=== PATIENT | female | born 1955 | race Caucasian/White ===

== ENCOUNTER 2016-08-05 12:54 | Day surgery (SDC) | payer MEDICARE, BC ==
[~2016-08-05] VITALS: Ht 162.7 cm; Wt 136.3 kg
[2016-08-05] VITALS (8 sets, daily range): BP systolic 91–140; BP diastolic 53–85; PULSE 70–89; TEMP 97.3–97.8
[~2016-08-05 12:54] MED LIST: ADVAIR 250/28 DISKU1 IH; ALEVE 220MG220 MG PO; ASPIRIN 81M81 MG/TA2 PO; B-12 500 MCG PO; CALCIUM PO; CELEXA40 MG PO; CLARITIN 1010 MG/TAB PO; CYMBALTA30 MG PO; DESYREL 50MG50 MG PO; EPA1000 MG PO; FERROUS SULFAT325 M2 PO; FLAX SEED OIL1000 MG PO; FLORAJEN BIFIDO1 CAP PO; FUROSEMIDE40 MG PO; GLUCOSAMINE & C1 CA1 PO; HYZAAR 50-12.1 UDTAB PO; IRON325 MG PO; KLONOPIN 1MG1 MG PO; KLONOPIN WAFERS1 MG PO; LASIX 80MG TABL80 MG PO; M2 ZINC 5050 MG PO; MASON NATURAL1200 MG PO; METFORMIN500 MG PO; MICARDIS HCT 251 TAB PO; MUCINEX DM 30 M1 TE1 PO; NAPROSYN500 MG PO; NATURAL E400 IU PO; NATURAL FLAX1000 MG PO; NEXIUM 40MG40 MG PO; OXYCODONE10 MG PO; PHARMASSURE MA500 MG PO; PHARMASSURE ZIN50 MG PO; PRAVACHOL 20MG20 MG PO; PROAIR HFA0.09 MG/AC IH; PROVENTIL0.09 MG/A1 IH; PROVIGIL200 MG PO; REFRESH 1 ML1 ML OP; REFRESH DRY EYE15 ML OP; REFRESH OPTIVE10 M2 OP; RT ADVAIR 228 DISKUS IH; SAVELLA50 MG PO; SINGULAIR 110 MG/TAB PO; SINGULAIR10 MG PO; SYNTHROID0.1 MG PO; SYNTHROID0.1 MG/TAB PO; TYLENOL 325MG325 MG PO; TYLENOL ARTHRI650 M1 PO; ULTRAM 50MG TAB50 MG PO; VITAMIN B COMPL1 TA1 PO; VITAMIN C500 MG PO; VITAMIN D31000 I1 PO; VITAMIN E 400 U4001 PO
[2016-08-05 13:59] LABS: HEMOGLOBIN 14.2 g/dl (12.5-16.0); MEAN CELL VOLUME 90 fl (80.0-100.0); MEAN CORPUSCULAR HEMOGLOBIN 31 pg (27.0-31.0); MEAN CORPUSCULAR HGB CONC 35 g/dl (33.0-37.0); MEAN PLATELET VOLUME 8.7 fl (7.4-10.4); PLATELET COUNT 256 K/mm3 (130-400); RED BLOOD COUNT 4.55 M/mm3 (4.10-5.30); REDCELL DISTRIBUTION WIDTH-CV 12.5 % (11.5-14.5); WHITE BLOOD COUNT 5.2 K/mm3 (4.8-10.8)
[2016-08-05 14:07] LABS: INR 1.1 (0.8-3.0); PROTHROMBIN TIME 12.4 SECONDS (9.7-12.8)
[2016-08-05 14:10] LABS: CALCIUM 9.7 mg/dL (8.4-10.2); CREATININE, serum 0.82 mg/dL (0.52-1.25); POTASSIUM 3.7 mmol/L (3.4-5.0)
[2016-08-05] MEDS ORDERED: OSCAL 500 TAB500 MG PO (14:20)
[2016-08-05] MEDS ORDERED: VITAMIN D1000 IU PO (14:21)
[2016-08-05] MEDS ORDERED: IRON325 MG PO (14:22)
[2016-08-05] MEDS ORDERED: DESYREL 100MG100 MG PO (14:34)
== END 2016-08-05 17:45 | disposition home or self-care (01) ==
LOC: COL.CAR 12:54
PROVIDERS: Internal Medicine Interventional Cardiology
DX: I25.10 Atherosclerotic heart disease of native coronary artery without angina pectoris (principal); E78.5 Hyperlipidemia, unspecified; E66.01 Morbid (severe) obesity due to excess calories; E11.9 Type 2 diabetes mellitus without complications; I10 Essential (primary) hypertension; E03.9 Hypothyroidism, unspecified; G47.33 Obstructive sleep apnea (adult) (pediatric); Z96.653 Presence of artificial knee joint, bilateral; Z87.891 Personal history of nicotine dependence; K21.9 Gastro-esophageal reflux disease without esophagitis; Z95.1 Presence of aortocoronary bypass graft
CPT/HCPCS: C1769; C1887; C1894; J2250; J3010; Q9967

== ENCOUNTER → 2017-02-16 | Outpatient (CLI) | payer MEDICARE, BC ==
[~2017-02-16] VITALS: Ht 162.6 cm; Wt 144.5 kg
[~2017-02-16] MED LIST changes: +COLACE 100100 MG/CAP PO; +DESYREL 100MG100 MG PO; +MASON NATURAL325 MG PO; +NORCO 325 MG-101 TAB PO; +TUMS ULTRA ST1000 MG PO; +TYLENOL 8 HR PO; +VITAMIN D1000 IU PO; +ZYRTEC 10MG10 MG PO
[2017-02-16 09:35] VITALS: BP 128/70; PULSE 84
== END ==
LOC: LIGHT 09:18
DX: M15.9 Polyosteoarthritis, unspecified (principal); M54.5 Low back pain; F50.81 Binge eating disorder; F33.9 Major depressive disorder, recurrent, unspecified; Z68.43 Body mass index [BMI] 50.0-59.9, adult; Z71.3 Dietary counseling and surveillance

== ENCOUNTER → 2017-02-22 | Outpatient (CLI) | payer MEDICARE, BC ==
[~2017-02-22] VITALS: Ht 162.6 cm; Wt 142.9 kg
== END ==
LOC: LIGHT 09:26
DX: Z01.89 Encounter for other specified special examinations (principal)

== ENCOUNTER → 2017-03-15 | Outpatient (CLI) | payer MEDICARE, BC ==
[~2017-03-15] VITALS: Ht 162.6 cm; Wt 143.1 kg
[2017-03-15 16:39] VITALS: BP 110/60; PULSE 60
== END ==
LOC: LIGHT 03-08 09:32
DX: M15.9 Polyosteoarthritis, unspecified (principal); M54.5 Low back pain; F50.81 Binge eating disorder; F33.9 Major depressive disorder, recurrent, unspecified; Z68.43 Body mass index [BMI] 50.0-59.9, adult; Z71.3 Dietary counseling and surveillance

== ENCOUNTER → 2017-04-12 | Outpatient (CLI) | payer MEDICARE, BC ==
[~2017-04-12] VITALS: Ht 162.6 cm; Wt 141.5 kg
[~2017-04-12] MED LIST changes: +ADIPEX-P37.5 MG PO
[2017-04-12 16:01] VITALS: BP 132/80; PULSE 82
== END ==
LOC: LIGHT 15:44
DX: M15.9 Polyosteoarthritis, unspecified (principal); M54.5 Low back pain; F50.81 Binge eating disorder; F33.9 Major depressive disorder, recurrent, unspecified; Z68.43 Body mass index [BMI] 50.0-59.9, adult; Z71.3 Dietary counseling and surveillance
CPT/HCPCS: G0463

== ENCOUNTER → 2017-05-17 | Outpatient (CLI) | payer MEDICARE, BC ==
[~2017-05-17] VITALS: Ht 162.6 cm; Wt 138.8 kg
[~2017-05-17] MED LIST changes: +GLUCOPHAGE500 MG/TAB PO
[2017-05-17 16:31] VITALS: BP 134/84; PULSE 80
== END ==
LOC: LIGHT 09:19
DX: M15.9 Polyosteoarthritis, unspecified (principal); M54.5 Low back pain; F50.81 Binge eating disorder; F33.9 Major depressive disorder, recurrent, unspecified; Z68.43 Body mass index [BMI] 50.0-59.9, adult; Z71.3 Dietary counseling and surveillance
CPT/HCPCS: G0463

== ENCOUNTER → 2017-06-14 | Outpatient (CLI) | payer MEDICARE, BC ==
[~2017-06-14] VITALS: Ht 162.6 cm; Wt 139.0 kg
[2017-06-14 15:15] VITALS: BP 138/88; PULSE 72
== END ==
LOC: LIGHT 10:01
DX: M15.9 Polyosteoarthritis, unspecified (principal); M54.5 Low back pain; F50.81 Binge eating disorder; F33.9 Major depressive disorder, recurrent, unspecified; Z68.43 Body mass index [BMI] 50.0-59.9, adult; Z71.3 Dietary counseling and surveillance
CPT/HCPCS: G0463

== ENCOUNTER → 2017-07-12 | Outpatient (CLI) | payer MEDICARE, BC ==
[~2017-07-12] VITALS: Ht 162.6 cm; Wt 137.9 kg
[~2017-07-12] MED LIST changes: +TOPAMAX50 MG PO
[2017-07-12 14:33] VITALS: BP 138/70; PULSE 72
== END ==
LOC: LIGHT 14:17
DX: M15.9 Polyosteoarthritis, unspecified (principal); M54.5 Low back pain; F50.81 Binge eating disorder; F33.9 Major depressive disorder, recurrent, unspecified; Z68.43 Body mass index [BMI] 50.0-59.9, adult; Z71.3 Dietary counseling and surveillance
CPT/HCPCS: G0463

== ENCOUNTER → 2017-08-09 | Outpatient (CLI) | payer MEDICARE, BC ==
[~2017-08-09] VITALS: Ht 162.6 cm; Wt 134.5 kg
[2017-08-09 12:47] VITALS: BP 110/74; PULSE 84
== END ==
LOC: LIGHT 09:33
DX: M15.9 Polyosteoarthritis, unspecified (principal); M54.5 Low back pain; F50.81 Binge eating disorder; F33.9 Major depressive disorder, recurrent, unspecified; Z68.43 Body mass index [BMI] 50.0-59.9, adult; Z71.3 Dietary counseling and surveillance
CPT/HCPCS: G0463

== ENCOUNTER → 2017-09-06 | Outpatient (CLI) | payer MEDICARE, BC ==
[~2017-09-06] VITALS: Ht 162.6 cm; Wt 132.0 kg
[2017-09-06 15:57] VITALS: BP 100/60; PULSE 60
== END ==
LOC: LIGHT 15:53
DX: M15.9 Polyosteoarthritis, unspecified (principal); M54.5 Low back pain; F50.81 Binge eating disorder; F33.9 Major depressive disorder, recurrent, unspecified; Z68.43 Body mass index [BMI] 50.0-59.9, adult; Z71.3 Dietary counseling and surveillance
CPT/HCPCS: G0463

== ENCOUNTER → 2017-10-11 | Outpatient (CLI) | payer MEDICARE, BC ==
[~2017-10-11] VITALS: Ht 162.6 cm; Wt 131.8 kg
[2017-10-11 15:37] VITALS: BP 120/80; PULSE 72
== END ==
LOC: LIGHT 15:25
DX: M15.9 Polyosteoarthritis, unspecified (principal); M54.5 Low back pain; F50.81 Binge eating disorder; F33.9 Major depressive disorder, recurrent, unspecified; Z68.42 Body mass index [BMI] 45.0-49.9, adult; Z71.3 Dietary counseling and surveillance
CPT/HCPCS: G0463

== ENCOUNTER → 2017-10-24 | Outpatient (CLI) | payer MEDICARE, BC ==
[~2017-10-24] VITALS: Ht 162.6 cm; Wt 131.3 kg
[~2017-10-24] MED LIST changes: +PLAQUENIL 200M200 MG PO
[2017-10-24 16:25] VITALS: BP 90/50; PULSE 90
== END ==
LOC: LIGHT 09:38
DX: I10 Essential (primary) hypertension (principal); M79.1 Myalgia; E66.01 Morbid (severe) obesity due to excess calories; Z68.42 Body mass index [BMI] 45.0-49.9, adult; Z71.3 Dietary counseling and surveillance
CPT/HCPCS: G0463

== ENCOUNTER → 2017-11-15 | Outpatient (CLI) | payer MEDICARE, BC ==
[~2017-11-15] VITALS: Ht 162.6 cm; Wt 131.3 kg
[2017-11-15 16:27] VITALS: BP 110/70; PULSE 78
== END ==
LOC: LIGHT 11:25
DX: M15.9 Polyosteoarthritis, unspecified (principal); F32.9 Major depressive disorder, single episode, unspecified; M54.5 Low back pain; F50.81 Binge eating disorder
CPT/HCPCS: G0463

== ENCOUNTER 2017-12-07 12:05 | Inpatient (IN) | payer MEDICARE, BC ==
[~2017-12-07] VITALS: Ht 162.6 cm; Wt 126.1 kg
[2017-12-21] VITALS (11 sets, daily range): BP systolic 128–158; BP diastolic 66–87; PULSE 63–84; TEMP 97.6–98.5
[2017-12-21] MEDS ORDERED: CALCIUM WITH D31 CTB PO (06:18)
[2017-12-21] MEDS ORDERED: MULTIPLE VITAMI1 TA5 PO (06:25)
[2017-12-21] MEDS ORDERED: ASPIRIN 81M81 MG/TA2 PO (06:25)
[2017-12-22 00:25] VITALS: BP 154/84; PULSE 87; TEMP 98.6
[2017-12-22 04:00] VITALS: BP 155/83; PULSE 83; TEMP 98.6
[2017-12-22 08:16] VITALS: BP 136/81; PULSE 86; TEMP 98.3
[2017-12-22 11:35] VITALS: BP 137/70; PULSE 88; TEMP 98.4
[2017-12-22 16:09] VITALS: BP 135/64; PULSE 84; TEMP 97.7
== END 2017-12-22 20:17 | disposition home or self-care (01) | DRG 621 ==
LOC: INPTSU 12-21 05:48 → SURG 12-21 08:00
PROVIDERS: Surgery
PROC: 0DB64Z3 Excision of Stomach, Percutaneous Endoscopic Approach, Vertical (ICD-10-PCS; principal; 2017-12-21 08:00)
DX: E66.01 Morbid (severe) obesity due to excess calories (principal); Z68.42 Body mass index [BMI] 45.0-49.9, adult; I10 Essential (primary) hypertension; G89.29 Other chronic pain; M54.5 Low back pain; R73.03 Prediabetes; M79.7 Fibromyalgia; M35.00 Sjogren syndrome, unspecified; J45.909 Unspecified asthma, uncomplicated
CPT/HCPCS: A9284; J0690; J1100; J1170; J1885; J2250; J2405; J2704; J2710; J2765; J3010; J7042; J7120

== ENCOUNTER → 2018-01-02 | Outpatient (CLI) | payer MEDICARE, BC ==
[~2018-01-02] VITALS: Ht 162.6 cm; Wt 121.6 kg
[~2018-01-02] MED LIST changes: +CALCIUM WITH D31 CTB PO; +MULTIPLE VITAMI1 TA5 PO
[2018-01-02 15:56] VITALS: BP 100/70; PULSE 68
== END ==
LOC: LIGHT 12-14 14:50
DX: M54.5 Low back pain (principal); F50.81 Binge eating disorder; F32.9 Major depressive disorder, single episode, unspecified; Z98.84 Bariatric surgery status

== ENCOUNTER → 2018-02-13 | Outpatient (CLI) | payer MEDICARE, BC ==
[~2018-02-13] VITALS: Ht 162.6 cm; Wt 117.3 kg
[2018-02-13 13:51] VITALS: BP 110/66; PULSE 68
== END ==
LOC: LIGHT 01-30 11:14
DX: M54.5 Low back pain (principal); F32.9 Major depressive disorder, single episode, unspecified; Z98.84 Bariatric surgery status; E66.01 Morbid (severe) obesity due to excess calories; Z68.42 Body mass index [BMI] 45.0-49.9, adult; Z71.3 Dietary counseling and surveillance

== ENCOUNTER → 2018-04-10 | Outpatient (CLI) | payer MEDICARE, BC ==
[~2018-04-10] VITALS: Ht 162.6 cm; Wt 114.3 kg
[2018-04-10 13:10] VITALS: BP 140/80; PULSE 72
== END ==
LOC: LIGHT 11:19
DX: M54.5 Low back pain (principal); Z98.84 Bariatric surgery status; F50.81 Binge eating disorder; F32.9 Major depressive disorder, single episode, unspecified; E66.01 Morbid (severe) obesity due to excess calories; Z68.41 Body mass index [BMI] 40.0-44.9, adult; Z71.3 Dietary counseling and surveillance
CPT/HCPCS: G0463

== ENCOUNTER → 2018-06-19 | Outpatient (CLI) | payer MEDICARE, BC ==
[~2018-06-19] VITALS: Ht 162.6 cm; Wt 112.5 kg
[2018-06-19 13:13] VITALS: BP 136/76; PULSE 68
== END ==
LOC: LIGHT 09:55
DX: Z98.84 Bariatric surgery status (principal); Z68.42 Body mass index [BMI] 45.0-49.9, adult; E66.01 Morbid (severe) obesity due to excess calories; Z71.3 Dietary counseling and surveillance
CPT/HCPCS: G0463

== ENCOUNTER → 2018-11-07 | Outpatient (CLI) | payer MEDICARE, BC ==
[~2018-11-07] VITALS: Ht 162.6 cm; Wt 106.8 kg
[~2018-11-07] MED LIST changes: +FLEXERIL 1010 MG/TAB PO
[2018-11-07 13:14] VITALS: BP 102/70; PULSE 77
== END ==
LOC: LIGHT 08:32
DX: M54.5 Low back pain (principal); F50.81 Binge eating disorder; F32.9 Major depressive disorder, single episode, unspecified; Z98.84 Bariatric surgery status; E66.01 Morbid (severe) obesity due to excess calories; Z68.41 Body mass index [BMI] 40.0-44.9, adult; Z71.3 Dietary counseling and surveillance
CPT/HCPCS: G0463

== ENCOUNTER → 2019-01-01 | Outpatient (CLI) | payer MEDICARE, BC ==
[~2019-01-01] VITALS: Ht 162.6 cm; Wt 109.3 kg
[2019-01-01 14:28] VITALS: BP 120/70; PULSE 62
== END ==
LOC: LIGHT 12-12 09:37
DX: M54.5 Low back pain (principal); F32.9 Major depressive disorder, single episode, unspecified; F50.81 Binge eating disorder; Z98.84 Bariatric surgery status; E66.01 Morbid (severe) obesity due to excess calories; Z68.41 Body mass index [BMI] 40.0-44.9, adult; Z71.3 Dietary counseling and surveillance
CPT/HCPCS: G0463

== ENCOUNTER → 2019-02-08 | Outpatient (CLI) | payer MEDICARE, BC ==
[~2019-02-08] VITALS: Ht 162.6 cm; Wt 107.3 kg
[2019-02-08 11:19] VITALS: BP 144/92; PULSE 67
== END ==
LOC: LIGHT 10:56
DX: M54.5 Low back pain (principal); F32.9 Major depressive disorder, single episode, unspecified; E66.01 Morbid (severe) obesity due to excess calories; Z68.41 Body mass index [BMI] 40.0-44.9, adult; Z71.3 Dietary counseling and surveillance
CPT/HCPCS: G0463